=== PATIENT | female | born 1970 | race Caucasian/White ===

== ENCOUNTER 2020-10-18 15:27 | Emergency (ER) | payer MEDICAID ==
[~2020-10-18] VITALS: Ht 157.5 cm; Wt 81.8 kg
[2020-10-18 15:52] VITALS: Ht 157.5 cm; Wt 81.8 kg
[2020-10-18] MEDS ORDERED: METHOCARBAMOL500 MG PO (18:21)
[2020-10-18] MEDS ORDERED: DICLOFENAC SODI50 MG PO (18:21)
[2020-10-18 19:08] VITALS: BP 106/68
== END 2020-10-18 22:14 | disposition home or self-care (01) ==
LOC: D.ER 15:27
DX: S70.01XA Contusion of right hip, initial encounter (principal); M54.5 Low back pain; W18.30XA Fall on same level, unspecified, initial encounter; Y93.9 Activity, unspecified; Y92.9 Unspecified place or not applicable